=== PATIENT | female | born 1990 | race African-American/Black ===

== ENCOUNTER 2018-03-29 19:43 | Emergency (ER) | payer OTHER ==
[~2018-03-29] VITALS: Ht 165.1 cm; Wt 83.0 kg
[2018-03-29 20:42] LABS: HEMATOCRIT 34.8 % (37.0-47.0); HEMOGLOBIN 11.4 gm/dL (12.0-15.0); MCH 28.7 pg (26.0-34.0); MCHC 32.8 g/dL (28.0-37.0); MCV 87.6 fL (80.0-100.0); PLATELET COUNT 493 thou/uL (150-400); RBC 3.97 mil/uL (4.20-5.00); RDW 14.1 % (10.5-14.5); WBC 10.1 thou/uL (4.0-11.0)
[2018-03-29 20:52] LABS: CALCIUM 8.9 mg/dL (8.5-10.1); CREATININE 0.8 mg/dL (0.6-1.0); POTASSIUM 3.7 mmol/L (3.5-5.1)
[2018-03-29 20:58] LABS: TOTAL BILIRUBIN 0.2 mg/dL (<0.1-1.0); TOTAL PROTEIN 7.2 g/dL (6.4-8.2)
[2018-03-29 21:06] LABS: ABSOLUTE NEUTROPHILS 7.1 thou/uL (1.4-8.2)
[2018-03-29 21:07] LABS: ANISOCYTOSIS 2+; POLYCHROMASIA SLIGHT
[2018-03-29 21:28] LABS: URINE BILIRUBIN NEGATIVE (Negative); URINE BLOOD TRACE (Negative); URINE CLARITY CLEAR; URINE COLOR YELLOW; URINE GLUCOSE-RANDOM* NEGATIVE (Negative); URINE KETONES NEGATIVE (Negative); URINE LEUKOCYTES-REFLEX NEGATIVE (Negative); URINE NITRITE-REFLEX NEGATIVE (Negative); URINE PROTEIN (DIPSTICK) NEGATIVE (Negative); URINE UROBILINOGEN 0.2 E.U./dl (0.2-1.0)
[2018-03-29] MEDS ORDERED: NORCO 10-325 T1 EACH PO (23:12)
[2018-03-29] MEDS ORDERED: ZPAK PO (23:32)
[2018-03-29] MEDS ORDERED: MIRALAX17 GM PO (23:32)
[2018-03-29 23:35] VITALS: BP 142/79
== END 2018-03-29 23:45 | disposition home or self-care (01) ==
LOC: ER 19:43
PROVIDERS: Physician Assistant
DX: M96.842 Postprocedural seroma of a musculoskeletal structure following a musculoskeletal system procedure (principal); J18.9 Pneumonia, unspecified organism; Z98.82 Breast implant status

== ENCOUNTER 2018-08-15 18:40 | Emergency (ER) | payer OTHER ==
[~2018-08-15] VITALS: Ht 165.1 cm; Wt 72.6 kg
[~2018-08-15 18:40] MED LIST: MIRALAX17 GM PO; NORCO 10-325 T1 EACH PO; ZPAK PO
[2018-08-15] MEDS ORDERED: NOHOMEMEDICATIONS (19:17)
[2018-08-15] MEDS ORDERED: NORFLEX100 MG PO (19:44)
[2018-08-15] MEDS ORDERED: NAPROSYN500 MG PO (19:44)
[2018-08-15 20:00] VITALS: BP 143/71
== END 2018-08-15 20:00 | disposition home or self-care (01) ==
LOC: ER 18:40
DX: S16.1XXA Strain of muscle, fascia and tendon at neck level, initial encounter (principal); S23.8XXA Sprain of other specified parts of thorax, initial encounter; V89.2XXA Person injured in unspecified motor-vehicle accident, traffic, initial encounter; Y92.89 Other specified places as the place of occurrence of the external cause; Y93.89 Activity, other specified; Y99.8 Other external cause status

== ENCOUNTER 2018-08-17 17:06 | Emergency (ER) | payer OTHER ==
[~2018-08-17] VITALS: Ht 165.1 cm; Wt 72.6 kg
[2018-08-17 17:06] VITALS: BP 132/75
[~2018-08-17 17:06] MED LIST changes: +NAPROSYN500 MG PO; +NOHOMEMEDICATIONS; +NORFLEX100 MG PO
[2018-08-17] MEDS ORDERED: FLEXERIL PO (17:41)
== END 2018-08-17 18:14 | disposition home or self-care (01) ==
LOC: ER 17:06
DX: M62.830 Muscle spasm of back (principal)